=== PATIENT | female | born 1945 | race Caucasian/White ===

== ENCOUNTER 2017-05-01 08:16 | Inpatient (IN) ==
[2017-05-01] MEDS ORDERED: DILTIAZEM 50 MG/10 ML VIAL IV STA (08:44)
[2017-05-01 08:57] LABS: Basophils # 0.1 10*3/uL (0.0-0.2); Basophils % 0.9 % (0.0-0.8); Eosinophils # 0.1 10*3/uL (0.0-0.87); Eosinophils % 2.3 % (0.00-10.9); Hematocrit 41.2 VOL% (35.7-47.0); Hemoglobin 14.2 GM/DL (12.0-16.0); Immature Granulocytes % 0.2 %; Immature Granulocytes Absolute 0.01 #; Lymphocytes # 1.8 10*3/uL (1.4-4.0); Lymphocytes % 31.9 % (21.3-54.2); Mean Corpuscular HGB Conc 34.5 GM/DL (32-36); Mean Corpuscular Hemoglobin 30 PG (27-34); Mean Corpuscular Volume 86.9 FL (87-102); Mean Platelet Volume 9.1 FL (9.6-12.0); Monocytes # 0.6 10*3/uL (0.11-0.8); Monocytes % 10.1 % (1.7-12.7); Neutrophils # 3.1 10*3/uL (1.4-7.4); Neutrophils % 54.6 % (38.7-73.9); Platelet Count 289 T/CUMM (130-400); Red Blood Count 4.74 MC/CUMM (3.8-5.5); Red Cell Distribution Width 13.4 % (9.3-17.3); White Blood Count 5.6 T/CUMM (4-12)
[2017-05-01 09:05] LABS: PT Patient Result 20.2 SECS; Partial Thromboplastin Time 34.7 SECS (0-40)
[2017-05-01] MEDS ORDERED: DILTIAZEM 100 MG VIAL.ADD IV ONE (09:09)
[2017-05-01] MEDS ORDERED: DILTIAZEM 50 MG/10 ML VIAL IV ONE (09:09)
[2017-05-01] MEDS ORDERED: SODIUM CHLORIDE 0.9% 100 ML IV ONE (09:10)
[2017-05-01] MEDS: DILTIAZEM INJ 100 MG in SODIUM CHLORIDE 0.9% 100 ML IV SCH ×2 (09:17→16:30)
[2017-05-01 09:41] LABS: Free T4 (Free Thyroxine) 1.26 NG/DL (0.76-1.46); Magnesium 2.1 MG/DL (1.8-2.4)
[2017-05-01 09:48] LABS: Alanine Aminotransferase 32 U/L (13-56); Albumin 4.1 G/DL (3.4-5.0); Alkaline Phosphatase 83 U/L (45-117); Aspartate Amino Transferase 23 U/L (0-37); Blood Urea Nitrogen 13 MG/DL (7-18); Calcium 9.1 MG/DL (8.5-10.1); Glucose 100 MG/DL (74-106); Osmolality,Calculated 269.1 MOS/KG (273-304); Potassium 3.7 MMOL/L (3.5-5.1); Sodium 135 MMOL/L (136-145); Total Protein 7.5 G/DL (6.4-8.3); Troponin I Only < 0.015 NG/ML (0.00-0.045)
[2017-05-01] MEDS ORDERED: MAGNESIUM SULF RIDER 2 GM in PREMIX 1 EACH IV PRN (11:00)
[2017-05-01] MEDS ORDERED: MAGNESIUM SULF RIDER 4 GM in PREMIX 1 EACH IV PRN (11:00)
[2017-05-01] MEDS ORDERED: ZALEPLON 5 MG CAPSULE PO PRN (11:15)
[2017-05-01] MEDS ORDERED: ACETAMINOPHEN 325 MG TABLET PO PRN (11:15)
[2017-05-01] MEDS ORDERED: ONDANSETRON 4 MG/2 ML VIAL IV PRN (11:15)
[2017-05-01] MEDS ORDERED: LACTULOSE 20 GM/30 ML UDCUP PO PRN (11:15)
[2017-05-01] MEDS ORDERED: diphenhydrAMINE CAP 25 MG CAPSULE PO PRN ×2 (11:15→16:40)
[2017-05-01] MEDS ORDERED: POTASSIUM CHLORIDE 20 MEQ TABLET PO PRN (11:15)
[2017-05-01] MEDS ORDERED: DOCUSATE SODIUM 100 MG CAPSULE PO PRN (11:15)
[2017-05-01] MEDS ORDERED: MAGNESIUM HYDROXIDE SUSP 30 ML UDCUP PO PRN (14:00)
[2017-05-01] MEDS: CLORAZEPATE 3.75 MG TABLET PO SCH (14:53)
[2017-05-01] MEDS: WARFARIN 7.5 MG TABLET PO SCH (18:31)
[2017-05-01] MEDS: SOTALOL 80 MG TABLET PO SCH (20:32)
[2017-05-02 05:23] LABS: Basophils % 0.6 % (0.0-0.8); Eosinophils # 0.2 10*3/uL (0.0-0.87); Eosinophils % 3.3 % (0.00-10.9); Hematocrit 39.4 VOL% (35.7-47.0); Hemoglobin 13.3 GM/DL (12.0-16.0); Immature Granulocytes % 0.2 %; Immature Granulocytes Absolute 0.01 #; Lymphocytes # 2.5 10*3/uL (1.4-4.0); Lymphocytes % 38.6 % (21.3-54.2); Mean Corpuscular HGB Conc 33.8 GM/DL (32-36); Mean Corpuscular Hemoglobin 29 PG (27-34); Mean Corpuscular Volume 87.2 FL (87-102); Mean Platelet Volume 9.4 FL (9.6-12.0); Monocytes # 0.7 10*3/uL (0.11-0.8); Monocytes % 10.6 % (1.7-12.7); Neutrophils % 46.7 % (38.7-73.9); Platelet Count 285 T/CUMM (130-400); Red Blood Count 4.52 MC/CUMM (3.8-5.5); Red Cell Distribution Width 13.5 % (9.3-17.3); White Blood Count 6.4 T/CUMM (4-12)
[2017-05-02 05:45] LABS: Calcium 8.3 MG/DL (8.5-10.1); Magnesium 2.1 MG/DL (1.8-2.4); Osmolality,Calculated 274.8 MOS/KG (273-304)
[2017-05-02] MEDS: LEVOTHYROXINE 88 MCG TABLET PO SCH (06:10)
[2017-05-02] MEDS: LOSARTAN 50 MG TABLET PO SCH (08:50)
[2017-05-02] MEDS: ASPIRIN 325 MG TABLET PO SCH (08:51)
[2017-05-02] MEDS: SOTALOL 80 MG TABLET PO SCH ×2 (08:51→21:49)
[2017-05-02] MEDS: CLORAZEPATE 3.75 MG TABLET PO SCH (08:51)
[2017-05-02] MEDS: PANTOPRAZOLE 40 MG TABLET PO SCH (08:51)
[2017-05-02] MEDS: hydroCHLOROthiazide 12.5 MG CAPSULE PO SCH (08:51)
[2017-05-02] MEDS: WARFARIN 7.5 MG TABLET PO SCH (18:02)
[2017-05-03] MEDS: SOTALOL 80 MG TABLET PO SCH ×2 (04:13→21:28)
[2017-05-03 04:35] LABS: Basophils # 0.1 10*3/uL (0.0-0.2); Basophils % 0.8 % (0.0-0.8); Eosinophils # 0.2 10*3/uL (0.0-0.87); Eosinophils % 3.9 % (0.00-10.9); Hematocrit 37.1 VOL% (35.7-47.0); Hemoglobin 12.5 GM/DL (12.0-16.0); Immature Granulocytes % 0.3 %; Immature Granulocytes Absolute 0.02 #; Lymphocytes # 2.5 10*3/uL (1.4-4.0); Lymphocytes % 40.8 % (21.3-54.2); Mean Corpuscular HGB Conc 33.7 GM/DL (32-36); Mean Corpuscular Hemoglobin 29 PG (27-34); Mean Corpuscular Volume 86.7 FL (87-102); Mean Platelet Volume 9.5 FL (9.6-12.0); Monocytes # 0.6 10*3/uL (0.11-0.8); Monocytes % 9.1 % (1.7-12.7); Neutrophils # 2.8 10*3/uL (1.4-7.4); Neutrophils % 45.1 % (38.7-73.9); Platelet Count 265 T/CUMM (130-400); Red Blood Count 4.28 MC/CUMM (3.8-5.5); Red Cell Distribution Width 13.4 % (9.3-17.3); White Blood Count 6.2 T/CUMM (4-12)
[2017-05-03 05:21] LABS: Calcium 8.3 MG/DL (8.5-10.1); Osmolality,Calculated 271.1 MOS/KG (273-304); Potassium 3.9 MMOL/L (3.5-5.1)
[2017-05-03] MEDS: LEVOTHYROXINE 88 MCG TABLET PO SCH (07:22)
[2017-05-03] MEDS ORDERED: SOTALOL 80 MG TABLET PO SCH ×2 (09:00→09:18)
[2017-05-03] MEDS ORDERED: LEVOTHYROXINE 125 MCG TABLET PO SCH (09:32)
[2017-05-03 10:09] LABS: INR 2.6
[2017-05-03] MEDS: hydroCHLOROthiazide 12.5 MG CAPSULE PO SCH (10:20)
[2017-05-03] MEDS: CLORAZEPATE 3.75 MG TABLET PO SCH (10:20)
[2017-05-03] MEDS: ASPIRIN 325 MG TABLET PO SCH (10:20)
[2017-05-03 10:21] LABS: PT Patient Result 26.1 SECS
[2017-05-03] MEDS: LOSARTAN 50 MG TABLET PO SCH (10:21)
[2017-05-03] MEDS: PANTOPRAZOLE 40 MG TABLET PO SCH (10:21)
[2017-05-03] MEDS: WARFARIN 7.5 MG TABLET PO SCH (17:20)
[2017-05-04 05:17] LABS: Calcium 8.4 MG/DL (8.5-10.1); Magnesium 1.9 MG/DL (1.8-2.4); Potassium 3.6 MMOL/L (3.5-5.1)
[2017-05-04 06:00] LABS: Basophils % 0.5 % (0.0-0.8); Eosinophils # 0.2 10*3/uL (0.0-0.87); Eosinophils % 3.2 % (0.00-10.9); Hematocrit 36.4 VOL% (35.7-47.0); Hemoglobin 12.5 GM/DL (12.0-16.0); Immature Granulocytes % 0.2 %; Immature Granulocytes Absolute 0.01 #; Lymphocytes # 2.1 10*3/uL (1.4-4.0); Lymphocytes % 38.1 % (21.3-54.2); Mean Corpuscular HGB Conc 34.3 GM/DL (32-36); Mean Corpuscular Hemoglobin 29 PG (27-34); Mean Corpuscular Volume 85.6 FL (87-102); Mean Platelet Volume 9.9 FL (9.6-12.0); Monocytes # 0.6 10*3/uL (0.11-0.8); Monocytes % 10.5 % (1.7-12.7); Neutrophils # 2.6 10*3/uL (1.4-7.4); Neutrophils % 47.5 % (38.7-73.9); Platelet Count 262 T/CUMM (130-400); Red Blood Count 4.25 MC/CUMM (3.8-5.5); Red Cell Distribution Width 13.2 % (9.3-17.3); White Blood Count 5.5 T/CUMM (4-12)
[2017-05-04] MEDS: hydroCHLOROthiazide 12.5 MG CAPSULE PO SCH (08:25)
[2017-05-04] MEDS: CLORAZEPATE 3.75 MG TABLET PO SCH (08:25)
[2017-05-04] MEDS: PANTOPRAZOLE 40 MG TABLET PO SCH (08:25)
[2017-05-04] MEDS: ASPIRIN 325 MG TABLET PO SCH (08:25)
[2017-05-04] MEDS: LOSARTAN 50 MG TABLET PO SCH (08:29)
[2017-05-04 08:56] VITALS: BP 199/88
[2017-05-04] MEDS ORDERED: amLODIPine 5 MG TABLET PO SCH (09:30)
[2017-05-04] MEDS ORDERED: POTASSIUM CHLORIDE 20 MEQ TABLET PO SCH (09:30)
== END 2017-05-04 10:15 | disposition home or self-care (01) | DRG 310 ==
LOC: N.ED 08:16 → N.EDINP 09:29 → N.TELEN 10:38
PROVIDERS: ADMIT Internal Medicine Interventional Cardiology; ATTEND Internal Medicine Interventional Cardiology

== ENCOUNTER 2019-01-27 09:06 | Inpatient (IN) ==
[2019-01-27] MEDS ORDERED: BISACODYL 5 MG TABLET PO PRN (09:14)
[2019-01-27] MEDS ORDERED: guaiFENesin/DM ER 600-30 MG TABLET PO PRN (09:14)
[2019-01-27] MEDS ORDERED: MAGNESIUM SULF RIDER 4 GM in PREMIX 1 EACH IV PRN (09:14)
[2019-01-27] MEDS ORDERED: MORPHINE 4 MG/1 ML VIAL IV PRN (09:14)
[2019-01-27] MEDS ORDERED: diphenhydrAMINE CAP 25 MG CAPSULE PO PRN (09:14)
[2019-01-27] MEDS ORDERED: LACTULOSE 20 GM/30 ML UDCUP PO PRN (09:14)
[2019-01-27] MEDS ORDERED: ACETAMINOPHEN 325 MG TABLET PO PRN (09:14)
[2019-01-27] MEDS ORDERED: ONDANSETRON 4 MG/2 ML VIAL IV PRN (09:14)
[2019-01-27] MEDS ORDERED: DILTIAZEM 50 MG/10 ML VIAL IV ONE (09:18)
[2019-01-27] MEDS ORDERED: SOTALOL 80 MG TABLET PO ONE ×2 (09:19→21:00)
[2019-01-27] MEDS ORDERED: dilTIAZem Drip 125 MG/125 ML PREMIX IV SCH (09:30)
[2019-01-27] MEDS ORDERED: SOTALOL 80 MG TABLET PO SCH (09:30)
[2019-01-27 12:38] LABS: Basophils % 0.7 % (0.0-0.8); Eosinophils # 0.2 10*3/uL (0.0-0.87); Eosinophils % 2.6 % (0.00-10.9); Hematocrit 39.6 VOL% (35.7-47.0); Hemoglobin 13.1 GM/DL (12.0-16.0); Immature Granulocytes % 0.2 %; Immature Granulocytes Absolute 0.01 #; Lymphocytes # 2.3 10*3/uL (1.4-4.0); Lymphocytes % 38.4 % (21.3-54.2); Mean Corpuscular HGB Conc 33.1 GM/DL (32-36); Mean Corpuscular Volume 89.8 FL (87-102); Mean Platelet Volume 9.4 FL (9.6-12.0); Monocytes % 9.8 % (1.7-12.7); Neutrophils % 48.3 % (38.7-73.9); Platelet Count 272 T/CUMM (130-400); Red Blood Count 4.41 MC/CUMM (3.8-5.5); Red Cell Distribution Width 13.7 % (9.3-17.3)
[2019-01-27 12:53] LABS: Albumin 3.7 G/DL (3.4-5.0); Bilirubin,Total 0.4 MG/DL (0.2-1.0); Osmolality,Calculated 272.8 MOS/KG (273-304); Total Protein 6.7 G/DL (6.4-8.3)
[2019-01-27 13:12] LABS: Troponin I < 0.015 NG/ML (0.00-0.045)
[2019-01-27 15:03] LABS: Apearance,Urine CLEAR (Clear); Bilirubin,Urine Negative (Negative); Blood, Urine Small mg/dL (Negative); Glucose,Urine (UA) Negative (Negative); Ketones,Urine Negative (Negative); Nitrite,Urine Negative (Negative); Protein,Urine Negative; RBC,Urine 1 /HPF (0-4); Urine Color Straw (Yellow); Urine Specific Gravity 1.006 (1.001-1.035); Urine Urobilinogen < 2.0 EU/DL (0.2-1.0); WBC,Urine 1 /HPF (0-6)
[2019-01-27 16:14] LABS: Troponin I < 0.015 NG/ML (0.00-0.045)
[2019-01-27] MEDS: AMIODARONE 200 MG TABLET PO SCH (20:29)
[2019-01-27] MEDS: CLORAZEPATE 3.75 MG TABLET PO SCH (20:29)
[2019-01-27] MEDS: SPIRONOLACTONE 25 MG TABLET PO SCH (20:33)
[2019-01-28 04:46] LABS: Basophils % 0.4 % (0.0-0.8); Eosinophils # 0.3 10*3/uL (0.0-0.87); Eosinophils % 3.6 % (0.00-10.9); Hematocrit 39.6 VOL% (35.7-47.0); Hemoglobin 13.1 GM/DL (12.0-16.0); Immature Granulocytes % 0.6 %; Immature Granulocytes Absolute 0.04 #; Lymphocytes % 42.7 % (21.3-54.2); Mean Corpuscular HGB Conc 33.1 GM/DL (32-36); Mean Corpuscular Volume 88.2 FL (87-102); Mean Platelet Volume 9.5 FL (9.6-12.0); Monocytes % 9.3 % (1.7-12.7); Neutrophils % 43.4 % (38.7-73.9); Platelet Count 254 T/CUMM (130-400); Red Blood Count 4.49 MC/CUMM (3.8-5.5); Red Cell Distribution Width 13.6 % (9.3-17.3)
[2019-01-28 04:51] LABS: INR 3.1
[2019-01-28 05:18] LABS: Calcium 9.1 MG/DL (8.5-10.1); Osmolality,Calculated 270.1 MOS/KG (273-304); Risk Ratio 3.69; Thyroid Stimulating Hormone 1.17 uIU/ml (0.358-3.74); VLDL CHOLESTEROL 14.8 MG/DL
[2019-01-28] MEDS: LEVOTHYROXINE 125 MCG TABLET PO SCH (06:19)
[2019-01-28] MEDS ORDERED: SODIUM CHLORIDE 0.9% 1,000 ML IV SCH (08:30)
[2019-01-28] MEDS: ASPIRIN EC 81 MG TABLET PO SCH (10:53)
[2019-01-28] MEDS: AMIODARONE 200 MG TABLET PO SCH ×2 (10:54→21:10)
[2019-01-28] MEDS: PANTOPRAZOLE 40 MG TABLET PO SCH (10:54)
[2019-01-28] MEDS: SPIRONOLACTONE 25 MG TABLET PO SCH ×2 (10:54→21:10)
[2019-01-28] MEDS: CLORAZEPATE 3.75 MG TABLET PO SCH ×2 (10:55→21:10)
[2019-01-28] MEDS: POLYETHYLENE GLYCOL POWDER 17 GM PACK PO SCH (10:55)
[2019-01-28] MEDS ORDERED: WARFARIN 5 MG TABLET PO SCH (18:00)
[2019-01-29 04:38] LABS: INR 2.2
[2019-01-29 04:41] LABS: Calcium 8.7 MG/DL (8.5-10.1)
[2019-01-29 04:41] LABS: Basophils % 0.6 % (0.0-0.8); Eosinophils # 0.2 10*3/uL (0.0-0.87); Eosinophils % 3.1 % (0.00-10.9); Hematocrit 36.6 VOL% (35.7-47.0); Hemoglobin 12.3 GM/DL (12.0-16.0); Immature Granulocytes % 0.3 %; Immature Granulocytes Absolute 0.02 #; Lymphocytes # 2.4 10*3/uL (1.4-4.0); Lymphocytes % 35.6 % (21.3-54.2); Mean Corpuscular HGB Conc 33.6 GM/DL (32-36); Mean Corpuscular Volume 88.6 FL (87-102); Mean Platelet Volume 9.9 FL (9.6-12.0); Monocytes % 10.3 % (1.7-12.7); Neutrophils % 50.1 % (38.7-73.9); Platelet Count 255 T/CUMM (130-400); Red Blood Count 4.13 MC/CUMM (3.8-5.5); Red Cell Distribution Width 13.5 % (9.3-17.3); White Blood Count 6.7 T/CUMM (4-12)
[2019-01-29 05:00] LABS: Free T4 (Free Thyroxine) 1.23 NG/DL (0.76-1.46)
[2019-01-29 05:26] LABS: PT Patient Result 23.4 SECS (9.6-12.2)
[2019-01-29] MEDS: LEVOTHYROXINE 125 MCG TABLET PO SCH (06:17)
[2019-01-29] MEDS ORDERED: REGADENOSON 0.4 MG/5 ML SYRINGE IV ONE (09:03)
[2019-01-29] MEDS: PANTOPRAZOLE 40 MG TABLET PO SCH (11:24)
[2019-01-29] MEDS: SPIRONOLACTONE 25 MG TABLET PO SCH ×2 (11:24→21:57)
[2019-01-29] MEDS: AMIODARONE 200 MG TABLET PO SCH ×2 (11:24→21:56)
[2019-01-29] MEDS: ASPIRIN EC 81 MG TABLET PO SCH (11:24)
[2019-01-29] MEDS: POLYETHYLENE GLYCOL POWDER 17 GM PACK PO SCH (11:24)
[2019-01-29] MEDS: CLORAZEPATE 3.75 MG TABLET PO SCH ×2 (11:25→21:58)
[2019-01-29 14:59] LABS: Apearance,Urine CLEAR (Clear); Bilirubin,Urine Negative (Negative); Blood, Urine Small mg/dL (Negative); Glucose,Urine (UA) Negative (Negative); Ketones,Urine 20 mg/dL (Negative); Mucus,Urine Occasional /LPF (Occasional); Nitrite,Urine Negative (Negative); Protein,Urine Negative; RBC,Urine 3 /HPF (0-4); Urine Color Yellow (Yellow); Urine Urobilinogen < 2.0 EU/DL (0.2-1.0); WBC,Urine 1 /HPF (0-6)
[2019-01-29] MEDS: WARFARIN 7.5 MG TABLET PO SCH (18:14)
[2019-01-29] MEDS: ZALEPLON 5 MG CAPSULE PO PRN (21:56)
[2019-01-30 04:57] LABS: Basophils % 0.4 % (0.0-0.8); Eosinophils # 0.2 10*3/uL (0.0-0.87); Eosinophils % 2.8 % (0.00-10.9); Hematocrit 39.4 VOL% (35.7-47.0); Hemoglobin 13.1 GM/DL (12.0-16.0); Immature Granulocytes % 0.3 %; Immature Granulocytes Absolute 0.02 #; Lymphocytes # 2.7 10*3/uL (1.4-4.0); Lymphocytes % 37.5 % (21.3-54.2); Mean Corpuscular HGB Conc 33.2 GM/DL (32-36); Mean Corpuscular Volume 88.1 FL (87-102); Monocytes % 9.4 % (1.7-12.7); Neutrophils % 49.6 % (38.7-73.9); Platelet Count 265 T/CUMM (130-400); Red Blood Count 4.47 MC/CUMM (3.8-5.5); Red Cell Distribution Width 13.6 % (9.3-17.3); White Blood Count 7.2 T/CUMM (4-12)
[2019-01-30 05:11] LABS: INR 2.4
[2019-01-30 05:44] LABS: PT Patient Result 26.4 SECS (9.6-12.2)
[2019-01-30 06:09] LABS: Calcium 9.1 MG/DL (8.5-10.1); Osmolality,Calculated 275.7 MOS/KG (273-304)
[2019-01-30] MEDS: LEVOTHYROXINE 125 MCG TABLET PO SCH (09:18)
[2019-01-30] MEDS: CLORAZEPATE 3.75 MG TABLET PO SCH ×2 (09:18→20:59)
[2019-01-30] MEDS: AMIODARONE 200 MG TABLET PO SCH ×2 (09:18→20:57)
[2019-01-30] MEDS: PANTOPRAZOLE 40 MG TABLET PO SCH (09:18)
[2019-01-30] MEDS: SPIRONOLACTONE 25 MG TABLET PO SCH ×2 (09:18→20:57)
[2019-01-30] MEDS: POLYETHYLENE GLYCOL POWDER 17 GM PACK PO SCH (09:19)
[2019-01-30] MEDS: ASPIRIN EC 81 MG TABLET PO SCH (09:19)
[2019-01-30] MEDS: WARFARIN 7.5 MG TABLET PO SCH (17:59)
[2019-01-30] MEDS: ZALEPLON 5 MG CAPSULE PO PRN (20:58)
[2019-01-31 05:24] LABS: Basophils % 0.6 % (0.0-0.8); Eosinophils # 0.2 10*3/uL (0.0-0.87); Eosinophils % 3.1 % (0.00-10.9); Hematocrit 38.7 VOL% (35.7-47.0); Hemoglobin 12.7 GM/DL (12.0-16.0); Immature Granulocytes % 0.3 %; Immature Granulocytes Absolute 0.02 #; Lymphocytes # 2.8 10*3/uL (1.4-4.0); Lymphocytes % 41.4 % (21.3-54.2); Mean Corpuscular HGB Conc 32.8 GM/DL (32-36); Mean Corpuscular Volume 88.8 FL (87-102); Mean Platelet Volume 9.9 FL (9.6-12.0); Monocytes % 9.8 % (1.7-12.7); Neutrophils % 44.8 % (38.7-73.9); Platelet Count 254 T/CUMM (130-400); Red Blood Count 4.36 MC/CUMM (3.8-5.5); Red Cell Distribution Width 13.5 % (9.3-17.3); White Blood Count 6.8 T/CUMM (4-12)
[2019-01-31 05:26] LABS: Calcium 8.6 MG/DL (8.5-10.1); Osmolality,Calculated 275.7 MOS/KG (273-304)
[2019-01-31] MEDS: LEVOTHYROXINE 125 MCG TABLET PO SCH (07:51)
[2019-01-31] MEDS: POLYETHYLENE GLYCOL POWDER 17 GM PACK PO SCH (09:17)
[2019-01-31] MEDS: AMIODARONE 200 MG TABLET PO SCH ×2 (09:18→21:18)
[2019-01-31] MEDS: CLORAZEPATE 3.75 MG TABLET PO SCH ×2 (09:18→21:18)
[2019-01-31] MEDS: ASPIRIN EC 81 MG TABLET PO SCH (09:18)
[2019-01-31] MEDS: PANTOPRAZOLE 40 MG TABLET PO SCH (09:18)
[2019-01-31] MEDS: SPIRONOLACTONE 25 MG TABLET PO SCH ×2 (09:18→21:19)
[2019-01-31] MEDS: WARFARIN 7.5 MG TABLET PO SCH (18:21)
[2019-02-01 04:48] LABS: Basophils % 0.6 % (0.0-0.8); Eosinophils # 0.2 10*3/uL (0.0-0.87); Eosinophils % 3.1 % (0.00-10.9); Hematocrit 35.4 VOL% (35.7-47.0); Hemoglobin 11.7 GM/DL (12.0-16.0); Immature Granulocytes % 0.4 %; Immature Granulocytes Absolute 0.03 #; Lymphocytes # 2.1 10*3/uL (1.4-4.0); Lymphocytes % 29.5 % (21.3-54.2); Mean Corpuscular HGB Conc 33.1 GM/DL (32-36); Mean Corpuscular Volume 89.8 FL (87-102); Mean Platelet Volume 9.7 FL (9.6-12.0); Monocytes % 10.3 % (1.7-12.7); Neutrophils % 56.1 % (38.7-73.9); Platelet Count 227 T/CUMM (130-400); Red Blood Count 3.94 MC/CUMM (3.8-5.5); Red Cell Distribution Width 13.7 % (9.3-17.3); White Blood Count 7.2 T/CUMM (4-12)
[2019-02-01 04:53] LABS: INR 3.3; PT Patient Result 35.5 SECS (9.6-12.2)
[2019-02-01 05:19] LABS: Calcium 8.5 MG/DL (8.5-10.1); Osmolality,Calculated 270.1 MOS/KG (273-304)
[2019-02-01] MEDS: MAGNESIUM SULF RIDER 2 GM in PREMIX 1 EACH IV PRN ×2 (05:49→17:47)
[2019-02-01] MEDS: LEVOTHYROXINE 125 MCG TABLET PO SCH (07:10)
[2019-02-01] MEDS ORDERED: MAGNESIUM SULF RIDER 2 GM in PREMIX 1 EACH IV ONE (07:20)
[2019-02-01] MEDS: AMIODARONE 200 MG TABLET PO SCH ×2 (08:47→21:21)
[2019-02-01] MEDS: PANTOPRAZOLE 40 MG TABLET PO SCH ×2 (08:47→17:07)
[2019-02-01] MEDS: CLORAZEPATE 3.75 MG TABLET PO SCH ×2 (08:47→21:21)
[2019-02-01] MEDS: SPIRONOLACTONE 25 MG TABLET PO SCH ×2 (08:47→21:21)
[2019-02-01] MEDS: POLYETHYLENE GLYCOL POWDER 17 GM PACK PO SCH (08:47)
[2019-02-01] MEDS: ASPIRIN EC 81 MG TABLET PO SCH (08:47)
[2019-02-01] MEDS ORDERED: HEPARIN/NACL 0.9% 2 UNITS/ML 1,000 ML IV ONE ×2 (13:07)
[2019-02-01] MEDS ORDERED: LIDOCAINE 1% 20 ML VIAL ONE (13:07)
[2019-02-01] MEDS ORDERED: PHYTONADIONE 10 MG/1 ML AMP ONE (14:57)
[2019-02-01] MEDS ORDERED: SODIUM CHLORIDE 0.9% 1,000 ML IV PRN ×4 (14:58→21:34)
[2019-02-01] MEDS ORDERED: HEPARIN/NACL 0.9% 2 UNITS/ML 500 ML IV ONE ×2 (15:05→15:13)
[2019-02-01] MEDS ORDERED: PHENYLEPHRINE DRIP 40 MG/250 ML PREMIX IV ONE (16:24)
[2019-02-01] MEDS ORDERED: PHENYLEPHRINE DRIP 40 MG/250 ML PREMIX IV SCH (16:30)
[2019-02-01 17:00] LABS: ABG Base Excess -4.7 MMOL/L (-2.5-2.5); ABG HCO3 20.5 MMOL/L (20-26); ABG Oxygen Saturation 99.9 % (95-100); ABG PH 7.374 (7.35-7.45); ABG TCO2 18.3 MMOL/L (23-27)
[2019-02-01 17:01] LABS: Basophils % 0.4 % (0.0-0.8); Eosinophils # 0.2 10*3/uL (0.0-0.87); Hematocrit 26.2 VOL% (35.7-47.0); Immature Granulocytes % 0.6 %; Immature Granulocytes Absolute 0.07 #; Lymphocytes # 4.2 10*3/uL (1.4-4.0); Lymphocytes % 37.3 % (21.3-54.2); Mean Corpuscular HGB Conc 33.2 GM/DL (32-36); Mean Corpuscular Volume 90.3 FL (87-102); Mean Platelet Volume 9.4 FL (9.6-12.0); Monocytes % 4.7 % (1.7-12.7); Platelet Count 203 T/CUMM (130-400); Red Cell Distribution Width 13.9 % (9.3-17.3)
[2019-02-01] MEDS ORDERED: SEVOFLURANE 1 UNIT/15 MINUTE INH ONE (17:01)
[2019-02-01] MEDS ORDERED: PROPOFOL 200 MG/20 ML VIAL IV ONE (17:01)
[2019-02-01] MEDS ORDERED: ROCURONIUM 100 MG/10 ML VIAL IV ONE (17:02)
[2019-02-01] MEDS ORDERED: fentaNYL 100 MCG/2 ML VIAL ONE (17:02)
[2019-02-01] MEDS ORDERED: ONDANSETRON 4 MG/2 ML VIAL ONE (17:02)
[2019-02-01] MEDS ORDERED: MIDAZOLAM 2 MG/2 ML VIAL ONE (17:02)
[2019-02-01] MEDS ORDERED: PHENYLEPHRINE DRIP 20 MG/250 ML PREMIX IV ONE (17:04)
[2019-02-01] MEDS ORDERED: DEXAMETHASONE 4 MG/1 ML VIAL ONE (17:04)
[2019-02-01] MEDS ORDERED: ePHEDrine 50 MG/ML AMP ONE (17:04)
[2019-02-01] MEDS ORDERED: LACTATED RINGERS 1,000 ML IV ONE ×2 (17:05→17:06)
[2019-02-01] MEDS ORDERED: SODIUM CHLORIDE 0.9% 1,000 ML IV ONE (17:05)
[2019-02-01] MEDS ORDERED: PHENYLEPHRINE 1 MG/10 ML SYRINGE IV ONE (17:05)
[2019-02-01] MEDS ORDERED: PROTAMINE SULFATE 50 MG/5 ML VIAL IV ONE (17:05)
[2019-02-01] MEDS: PROPOFOL 1,000 MG/100 ML BOTTLE IV SCH ×2 (17:07→23:26)
[2019-02-01] MEDS: SODIUM CHLORIDE 0.9% 1,000 ML IV SCH (17:08)
[2019-02-01 17:11] LABS: Hemoglobin 8.7 GM/DL (12.0-16.0); White Blood Count 11.4 T/CUMM (4-12)
[2019-02-01 17:17] LABS: Calcium 7.6 MG/DL (8.5-10.1); Osmolality,Calculated 281.7 MOS/KG (273-304)
[2019-02-01 17:32] LABS: INR 1.7; PT Patient Result 17.9 SECS (9.6-12.2)
[2019-02-01] MEDS: ceFAZolin 1,000 MG in SYRINGE 1 EACH IV SCH (17:47)
[2019-02-01] MEDS: POTASSIUM CHLORIDE RIDER 10 MEQ in PREMIX 1 EACH IV PRN ×4 (17:48→20:55)
[2019-02-01] MEDS ORDERED: CALCIUM GLUCONATE 1,000 MG in SODIUM CHLORIDE 0.9% 100 ML IV PRN (18:29)
[2019-02-02 00:47] LABS: Hematocrit 29.8 VOL% (35.7-47.0); Hemoglobin 10.1 GM/DL (12.0-16.0)
[2019-02-02] MEDS ORDERED: SODIUM CHLORIDE 0.9% 100 ML IV ONE (01:45)
[2019-02-02] MEDS: ceFAZolin 1,000 MG in SYRINGE 1 EACH IV SCH ×3 (01:51→16:30)
[2019-02-02] MEDS: SODIUM CHLORIDE 0.9% 1,000 ML IV SCH ×2 (02:40→13:05)
[2019-02-02] MEDS: PROPOFOL 1,000 MG/100 ML BOTTLE IV SCH ×2 (03:16→07:43)
[2019-02-02 03:59] LABS: Allen Test Positive; Pt O2 Delivery Device Ventilator
[2019-02-02 04:00] LABS: ABG Base Excess -0.7 MMOL/L (-2.5-2.5); ABG HCO3 23.9 MMOL/L (20-26); ABG Oxygen Saturation 99.7 % (95-100); ABG PCO2 32.7 MM HG (35-48); ABG TCO2 20.6 MMOL/L (23-27)
[2019-02-02 04:36] LABS: Basophils % 0.1 % (0.0-0.8); Eosinophils % 0.3 % (0.00-10.9); Hematocrit 28.6 VOL% (35.7-47.0); Hemoglobin 9.6 GM/DL (12.0-16.0); Immature Granulocytes % 0.5 %; Immature Granulocytes Absolute 0.04 #; Lymphocytes # 1.4 10*3/uL (1.4-4.0); Lymphocytes % 19.1 % (21.3-54.2); Mean Corpuscular HGB Conc 33.6 GM/DL (32-36); Mean Corpuscular Volume 88.5 FL (87-102); Mean Platelet Volume 10.2 FL (9.6-12.0); Monocytes % 8.4 % (1.7-12.7); Neutrophils % 71.6 % (38.7-73.9); Red Blood Count 3.23 MC/CUMM (3.8-5.5); Red Cell Distribution Width 14.4 % (9.3-17.3)
[2019-02-02 04:37] LABS: INR 1.1; PT Patient Result 11.9 SECS (9.6-12.2)
[2019-02-02 04:46] LABS: Platelet Count 135 T/CUMM (130-400); White Blood Count 7.5 T/CUMM (4-12)
[2019-02-02 04:47] LABS: Calcium 8.2 MG/DL (8.5-10.1); Osmolality,Calculated 279.3 MOS/KG (273-304)
[2019-02-02] MEDS: LEVOTHYROXINE 125 MCG TABLET PO SCH (06:24)
[2019-02-02] MEDS: SPIRONOLACTONE 25 MG TABLET PO SCH ×2 (08:29→20:36)
[2019-02-02] MEDS: CLORAZEPATE 3.75 MG TABLET PO SCH ×2 (08:29→20:36)
[2019-02-02] MEDS: AMIODARONE 200 MG TABLET PO SCH ×2 (08:30→20:36)
[2019-02-02] MEDS: POLYETHYLENE GLYCOL POWDER 17 GM PACK PO SCH (08:35)
[2019-02-02] MEDS: PANTOPRAZOLE 40 MG TABLET PO SCH (08:35)
[2019-02-02] MEDS: IBUPROFEN 400 MG TABLET PO PRN ×2 (13:57→20:36)
[2019-02-02] MEDS: COLCHICINE 0.6 MG CAPSULE PO SCH (13:57)
[2019-02-02] MEDS: MINERAL OIL/PETROLATUM OPH OINT 3.5 GM TUBE BOTH EYES SCH (20:37)
[2019-02-03] MEDS: ceFAZolin 1,000 MG in SYRINGE 1 EACH IV SCH ×2 (01:55→08:45)
[2019-02-03 04:26] LABS: Basophils % 0.1 % (0.0-0.8); Eosinophils % 0.5 % (0.00-10.9); Hematocrit 29.2 VOL% (35.7-47.0); Hemoglobin 9.8 GM/DL (12.0-16.0); Immature Granulocytes % 0.2 %; Immature Granulocytes Absolute 0.02 #; Lymphocytes # 1.3 10*3/uL (1.4-4.0); Lymphocytes % 15.3 % (21.3-54.2); Mean Corpuscular HGB Conc 33.6 GM/DL (32-36); Mean Corpuscular Volume 89.3 FL (87-102); Mean Platelet Volume 9.8 FL (9.6-12.0); Monocytes % 13.2 % (1.7-12.7); Neutrophils % 70.7 % (38.7-73.9); Platelet Count 116 T/CUMM (130-400); Red Blood Count 3.27 MC/CUMM (3.8-5.5); Red Cell Distribution Width 14.6 % (9.3-17.3); White Blood Count 8.5 T/CUMM (4-12)
[2019-02-03 04:38] LABS: INR 1.1; PT Patient Result 11.4 SECS (9.6-12.2)
[2019-02-03 04:44] LABS: Calcium 8.2 MG/DL (8.5-10.1); Osmolality,Calculated 274.5 MOS/KG (273-304)
[2019-02-03] MEDS: LEVOTHYROXINE 125 MCG TABLET PO SCH (06:24)
[2019-02-03] MEDS: CLORAZEPATE 3.75 MG TABLET PO SCH ×2 (08:43→21:58)
[2019-02-03] MEDS: COLCHICINE 0.6 MG CAPSULE PO SCH (08:43)
[2019-02-03] MEDS: AMIODARONE 200 MG TABLET PO SCH (08:44)
[2019-02-03] MEDS: PANTOPRAZOLE 40 MG TABLET PO SCH (08:45)
[2019-02-03] MEDS: SPIRONOLACTONE 25 MG TABLET PO SCH ×2 (08:45→21:58)
[2019-02-03] MEDS: POLYETHYLENE GLYCOL POWDER 17 GM PACK PO SCH (08:45)
[2019-02-03] MEDS: IBUPROFEN 400 MG TABLET PO PRN (15:50)
[2019-02-03] MEDS ORDERED: FUROSEMIDE 20 MG TABLET PO ONE (17:03)
[2019-02-03] MEDS: MINERAL OIL/PETROLATUM OPH OINT 3.5 GM TUBE BOTH EYES SCH (21:57)
[2019-02-03] MEDS: DILTIAZEM CD 120 MG CAPSULE PO SCH (21:58)
[2019-02-03] MEDS: CARVEDILOL 3.125 MG TABLET PO SCH (22:02)
[2019-02-04 05:03] LABS: Basophils % 0.4 % (0.0-0.8); Eosinophils # 0.2 10*3/uL (0.0-0.87); Eosinophils % 1.7 % (0.00-10.9); Hematocrit 31.5 VOL% (35.7-47.0); Hemoglobin 10.3 GM/DL (12.0-16.0); Immature Granulocytes % 0.4 %; Immature Granulocytes Absolute 0.04 #; Lymphocytes # 1.9 10*3/uL (1.4-4.0); Lymphocytes % 20.7 % (21.3-54.2); Mean Corpuscular HGB Conc 32.7 GM/DL (32-36); Mean Corpuscular Volume 90.3 FL (87-102); Mean Platelet Volume 9.7 FL (9.6-12.0); Monocytes % 7.5 % (1.7-12.7); Neutrophils % 69.3 % (38.7-73.9); Platelet Count 149 T/CUMM (130-400); Red Blood Count 3.49 MC/CUMM (3.8-5.5); Red Cell Distribution Width 14.3 % (9.3-17.3)
[2019-02-04 05:12] LABS: INR 0.9; PT Patient Result 10.2 SECS (9.6-12.2)
[2019-02-04 05:16] LABS: Calcium 8.2 MG/DL (8.5-10.1); Osmolality,Calculated 271.8 MOS/KG (273-304)
[2019-02-04] MEDS: LEVOTHYROXINE 125 MCG TABLET PO SCH (06:07)
[2019-02-04] MEDS: MAGNESIUM SULF RIDER 2 GM in PREMIX 1 EACH IV PRN (06:07)
[2019-02-04] MEDS: POTASSIUM CHLORIDE 20 MEQ TABLET PO PRN (06:07)
[2019-02-04] MEDS ORDERED: POTASSIUM CHLORIDE 20 MEQ TABLET PO ONE (07:43)
[2019-02-04] MEDS ORDERED: COLCHICINE 0.6 MG CAPSULE PO SCH (09:00)
[2019-02-04] MEDS ORDERED: FUROSEMIDE 40 MG TABLET PO SCH (09:00)
[2019-02-04] MEDS: POLYETHYLENE GLYCOL POWDER 17 GM PACK PO SCH (09:04)
[2019-02-04] MEDS: CARVEDILOL 3.125 MG TABLET PO SCH (09:05)
[2019-02-04] MEDS: AMIODARONE 200 MG TABLET PO SCH (09:06)
[2019-02-04] MEDS: SPIRONOLACTONE 25 MG TABLET PO SCH ×2 (09:06→21:13)
[2019-02-04] MEDS: COLCHICINE 0.6 MG CAPSULE PO SCH (09:06)
[2019-02-04] MEDS: PANTOPRAZOLE 40 MG TABLET PO SCH (09:51)
[2019-02-04] MEDS: MAGNESIUM OXIDE 400 MG TABLET PO SCH ×2 (10:43→21:14)
[2019-02-04] MEDS: DILTIAZEM CD 120 MG CAPSULE PO SCH (21:13)
[2019-02-04] MEDS: CARVEDILOL 12.5 MG TABLET PO SCH (21:13)
[2019-02-04] MEDS: MINERAL OIL/PETROLATUM OPH OINT 3.5 GM TUBE BOTH EYES SCH (21:14)
[2019-02-05 06:07] LABS: Basophils % 0.6 % (0.0-0.8); Eosinophils # 0.2 10*3/uL (0.0-0.87); Eosinophils % 3.7 % (0.00-10.9); Hematocrit 31.3 VOL% (35.7-47.0); Hemoglobin 10.2 GM/DL (12.0-16.0); Immature Granulocytes % 0.3 %; Immature Granulocytes Absolute 0.02 #; Lymphocytes # 1.7 10*3/uL (1.4-4.0); Lymphocytes % 25.6 % (21.3-54.2); Mean Corpuscular HGB Conc 32.6 GM/DL (32-36); Mean Corpuscular Volume 91.3 FL (87-102); Monocytes % 11.4 % (1.7-12.7); Neutrophils % 58.4 % (38.7-73.9); Platelet Count 180 T/CUMM (130-400); Red Blood Count 3.43 MC/CUMM (3.8-5.5); Red Cell Distribution Width 13.9 % (9.3-17.3); White Blood Count 6.5 T/CUMM (4-12)
[2019-02-05 06:12] LABS: INR 0.9; PT Patient Result 10.1 SECS (9.6-12.2)
[2019-02-05 06:29] LABS: Calcium 8.3 MG/DL (8.5-10.1); Osmolality,Calculated 271.8 MOS/KG (273-304)
[2019-02-05] MEDS: LEVOTHYROXINE 125 MCG TABLET PO SCH (06:42)
[2019-02-05] MEDS: COLCHICINE 0.6 MG CAPSULE PO SCH (09:54)
[2019-02-05] MEDS: MAGNESIUM OXIDE 400 MG TABLET PO SCH ×2 (09:54→20:38)
[2019-02-05] MEDS: SPIRONOLACTONE 25 MG TABLET PO SCH ×2 (09:55→20:38)
[2019-02-05] MEDS: FUROSEMIDE 20 MG TABLET PO SCH (09:55)
[2019-02-05] MEDS: POTASSIUM CHLORIDE 20 MEQ TABLET PO PRN (09:55)
[2019-02-05] MEDS: PANTOPRAZOLE 40 MG TABLET PO SCH (09:55)
[2019-02-05] MEDS: AMIODARONE 200 MG TABLET PO SCH (09:56)
[2019-02-05] MEDS: POLYETHYLENE GLYCOL POWDER 17 GM PACK PO SCH (09:56)
[2019-02-05] MEDS: CARVEDILOL 12.5 MG TABLET PO SCH ×2 (09:56→18:25)
[2019-02-05] MEDS: DILTIAZEM CD 120 MG CAPSULE PO SCH (20:39)
[2019-02-05] MEDS: MINERAL OIL/PETROLATUM OPH OINT 3.5 GM TUBE BOTH EYES SCH (20:40)
[2019-02-06 04:32] LABS: INR 0.9; PT Patient Result 10.2 SECS (9.6-12.2)
[2019-02-06 04:58] LABS: Calcium 8.5 MG/DL (8.5-10.1); Osmolality,Calculated 274.7 MOS/KG (273-304)
[2019-02-06 05:34] LABS: Anisocytosis 1+; Platelet Estimate Adequate
[2019-02-06 05:45] LABS: Basophils % 0.6 % (0.0-0.8); Eosinophils # 0.3 10*3/uL (0.0-0.87); Eosinophils % 4.9 % (0.00-10.9); Hemoglobin 10.4 GM/DL (12.0-16.0); Immature Granulocytes % 0.3 %; Immature Granulocytes Absolute 0.02 #; Lymphocytes # 1.9 10*3/uL (1.4-4.0); Lymphocytes % 27.8 % (21.3-54.2); Mean Corpuscular HGB Conc 32.5 GM/DL (32-36); Mean Corpuscular Volume 91.7 FL (87-102); Mean Platelet Volume 9.8 FL (9.6-12.0); Monocytes % 10.3 % (1.7-12.7); Neutrophils % 56.1 % (38.7-73.9); Platelet Count 222 T/CUMM (130-400); Red Blood Count 3.49 MC/CUMM (3.8-5.5); Red Cell Distribution Width 13.8 % (9.3-17.3); White Blood Count 6.9 T/CUMM (4-12)
[2019-02-06] MEDS: LEVOTHYROXINE 125 MCG TABLET PO SCH (06:30)
[2019-02-06] MEDS: POTASSIUM CHLORIDE 20 MEQ TABLET PO PRN (06:31)
[2019-02-06] MEDS: MAGNESIUM OXIDE 400 MG TABLET PO SCH ×2 (08:01→20:53)
[2019-02-06] MEDS: POLYETHYLENE GLYCOL POWDER 17 GM PACK PO SCH (08:01)
[2019-02-06] MEDS: PANTOPRAZOLE 40 MG TABLET PO SCH (08:01)
[2019-02-06] MEDS: FUROSEMIDE 20 MG TABLET PO SCH (08:01)
[2019-02-06] MEDS: AMIODARONE 200 MG TABLET PO SCH (08:01)
[2019-02-06] MEDS: SPIRONOLACTONE 25 MG TABLET PO SCH ×2 (08:01→20:52)
[2019-02-06] MEDS: COLCHICINE 0.6 MG CAPSULE PO SCH (08:01)
[2019-02-06] MEDS: CARVEDILOL 12.5 MG TABLET PO SCH ×2 (08:01→17:22)
[2019-02-06] MEDS: DILTIAZEM CD 120 MG CAPSULE PO SCH (20:53)
[2019-02-06] MEDS: MINERAL OIL/PETROLATUM OPH OINT 3.5 GM TUBE BOTH EYES SCH (20:53)
[2019-02-07 06:01] LABS: Basophils % 0.6 % (0.0-0.8); Eosinophils # 0.2 10*3/uL (0.0-0.87); Eosinophils % 4.4 % (0.00-10.9); Hematocrit 39.2 VOL% (35.7-47.0); Hemoglobin 12.7 GM/DL (12.0-16.0); Immature Granulocytes % 0.4 %; Immature Granulocytes Absolute 0.02 #; Lymphocytes # 1.3 10*3/uL (1.4-4.0); Lymphocytes % 24.6 % (21.3-54.2); Mean Corpuscular HGB Conc 32.4 GM/DL (32-36); Mean Platelet Volume 9.2 FL (9.6-12.0); Monocytes % 10.4 % (1.7-12.7); Neutrophils % 59.6 % (38.7-73.9); Platelet Count 182 T/CUMM (130-400); Red Blood Count 4.31 MC/CUMM (3.8-5.5); Red Cell Distribution Width 13.6 % (9.3-17.3); White Blood Count 5.2 T/CUMM (4-12)
[2019-02-07 06:08] LABS: INR 0.9; PT Patient Result 10.3 SECS (9.6-12.2)
[2019-02-07] MEDS: LEVOTHYROXINE 125 MCG TABLET PO SCH (06:18)
[2019-02-07 06:50] LABS: Calcium 8.7 MG/DL (8.5-10.1); Osmolality,Calculated 273.7 MOS/KG (273-304)
[2019-02-07] MEDS: COLCHICINE 0.6 MG CAPSULE PO SCH (09:00)
[2019-02-07] MEDS: MAGNESIUM OXIDE 400 MG TABLET PO SCH ×2 (09:00→21:10)
[2019-02-07] MEDS: AMIODARONE 200 MG TABLET PO SCH (09:00)
[2019-02-07] MEDS: FUROSEMIDE 20 MG TABLET PO SCH (09:01)
[2019-02-07] MEDS: CARVEDILOL 12.5 MG TABLET PO SCH ×2 (09:01→16:38)
[2019-02-07] MEDS: POLYETHYLENE GLYCOL POWDER 17 GM PACK PO SCH (09:01)
[2019-02-07] MEDS: PANTOPRAZOLE 40 MG TABLET PO SCH (09:01)
[2019-02-07] MEDS: SPIRONOLACTONE 25 MG TABLET PO SCH ×2 (09:01→21:10)
[2019-02-07] MEDS: MAGNESIUM SULF RIDER 2 GM in PREMIX 1 EACH IV PRN (09:10)
[2019-02-07] MEDS: MINERAL OIL/PETROLATUM OPH OINT 3.5 GM TUBE BOTH EYES SCH (21:10)
[2019-02-07] MEDS: DILTIAZEM CD 120 MG CAPSULE PO SCH (21:10)
[2019-02-08] MEDS ORDERED: ceFAZolin 1,000 MG in SYRINGE 1 EACH IV ONE (06:00)
[2019-02-08 06:27] LABS: Basophils % 0.4 % (0.0-0.8); Eosinophils # 0.3 10*3/uL (0.0-0.87); Eosinophils % 3.9 % (0.00-10.9); Immature Granulocytes % 0.6 %; Immature Granulocytes Absolute 0.04 #; Lymphocytes # 1.7 10*3/uL (1.4-4.0); Lymphocytes % 24.4 % (21.3-54.2); Mean Corpuscular HGB Conc 32.4 GM/DL (32-36); Mean Corpuscular Volume 90.4 FL (87-102); Mean Platelet Volume 9.3 FL (9.6-12.0); Monocytes % 11.3 % (1.7-12.7); Neutrophils % 59.4 % (38.7-73.9); Platelet Count 259 T/CUMM (130-400); Red Blood Count 3.76 MC/CUMM (3.8-5.5); Red Cell Distribution Width 13.5 % (9.3-17.3)
[2019-02-08] MEDS ORDERED: ceFAZolin 1,000 MG VIAL IRRIG ONE (06:30)
[2019-02-08] MEDS: LEVOTHYROXINE 125 MCG TABLET PO SCH (06:34)
[2019-02-08 06:37] LABS: PT Patient Result 10.5 SECS (9.6-12.2)
[2019-02-08 06:47] LABS: Calcium 9.2 MG/DL (8.5-10.1); Osmolality,Calculated 273.8 MOS/KG (273-304)
[2019-02-08] MEDS ORDERED: HEPARIN/NACL 0.9% 2 UNITS/ML 500 ML IV ONE ×2 (12:49→14:16)
[2019-02-08] MEDS ORDERED: LIDOCAINE 1% 20 ML VIAL ONE ×2 (12:49→14:16)
[2019-02-08] MEDS ORDERED: ceFAZolin 1,000 MG VIAL ONE (12:55)
[2019-02-08] MEDS ORDERED: LIDOCAINE 100 MG/5 ML SYRINGE ONE (13:14)
[2019-02-08] MEDS ORDERED: PROPOFOL 200 MG/20 ML VIAL IV ONE (13:14)
[2019-02-08] MEDS ORDERED: fentaNYL 100 MCG/2 ML VIAL ONE (13:15)
[2019-02-08] MEDS ORDERED: MIDAZOLAM 2 MG/2 ML VIAL ONE (13:15)
[2019-02-08] MEDS ORDERED: TISSUE ADHESIVE 1 EACH APPLICATOR TOP ONE (13:51)
[2019-02-08] MEDS ORDERED: HEPARIN/NACL 0.9% 2 UNITS/ML 1,000 ML IV ONE (14:24)
[2019-02-08] MEDS ORDERED: oxyCODONE/ACETAMINOPHEN 5-325 MG TABLET PO PRN (14:53)
[2019-02-08] MEDS: SPIRONOLACTONE 25 MG TABLET PO SCH ×2 (17:20→20:48)
[2019-02-08] MEDS: MAGNESIUM OXIDE 400 MG TABLET PO SCH ×2 (17:20→20:48)
[2019-02-08] MEDS: POLYETHYLENE GLYCOL POWDER 17 GM PACK PO SCH (17:30)
[2019-02-08] MEDS: AMIODARONE 200 MG TABLET PO SCH (17:31)
[2019-02-08] MEDS: FUROSEMIDE 20 MG TABLET PO SCH (17:31)
[2019-02-08] MEDS: PANTOPRAZOLE 40 MG TABLET PO SCH (17:33)
[2019-02-08] MEDS: CARVEDILOL 12.5 MG TABLET PO SCH (17:54)
[2019-02-08] MEDS: COLCHICINE 0.6 MG CAPSULE PO SCH (17:54)
[2019-02-08] MEDS ORDERED: WARFARIN 7.5 MG TABLET PO SCH (18:00)
[2019-02-08] MEDS: CARVEDILOL 25 MG TABLET PO SCH (18:01)
[2019-02-08] MEDS: MINERAL OIL/PETROLATUM OPH OINT 3.5 GM TUBE BOTH EYES SCH (20:48)
[2019-02-08] MEDS: ceFAZolin 1,000 MG in SYRINGE 1 EACH IV SCH (20:48)
[2019-02-09] MEDS: ceFAZolin 1,000 MG in SYRINGE 1 EACH IV SCH (04:41)
[2019-02-09 05:27] LABS: Basophils % 0.4 % (0.0-0.8); Eosinophils # 0.1 10*3/uL (0.0-0.87); Eosinophils % 1.3 % (0.00-10.9); Hematocrit 32.2 VOL% (35.7-47.0); Hemoglobin 10.6 GM/DL (12.0-16.0); Immature Granulocytes % 0.4 %; Immature Granulocytes Absolute 0.03 #; Lymphocytes # 1.6 10*3/uL (1.4-4.0); Lymphocytes % 21.7 % (21.3-54.2); Mean Corpuscular HGB Conc 32.9 GM/DL (32-36); Mean Corpuscular Volume 89.9 FL (87-102); Mean Platelet Volume 9.2 FL (9.6-12.0); Monocytes % 11.1 % (1.7-12.7); Neutrophils % 65.1 % (38.7-73.9); Platelet Count 251 T/CUMM (130-400); Red Blood Count 3.58 MC/CUMM (3.8-5.5); Red Cell Distribution Width 13.7 % (9.3-17.3); White Blood Count 7.5 T/CUMM (4-12)
[2019-02-09 05:40] LABS: PT Patient Result 11.3 SECS (9.6-12.2)
[2019-02-09 05:57] LABS: Calcium 8.4 MG/DL (8.5-10.1); Osmolality,Calculated 266.2 MOS/KG (273-304)
[2019-02-09] MEDS: LEVOTHYROXINE 125 MCG TABLET PO SCH (06:21)
[2019-02-09 09:03] VITALS: BP 148/73
[2019-02-09] MEDS: MAGNESIUM OXIDE 400 MG TABLET PO SCH (09:49)
[2019-02-09] MEDS: PANTOPRAZOLE 40 MG TABLET PO SCH (09:49)
[2019-02-09] MEDS: SPIRONOLACTONE 25 MG TABLET PO SCH (09:49)
[2019-02-09] MEDS: AMIODARONE 200 MG TABLET PO SCH (09:49)
[2019-02-09] MEDS: FUROSEMIDE 20 MG TABLET PO SCH (09:49)
[2019-02-09] MEDS: CARVEDILOL 25 MG TABLET PO SCH (09:50)
[2019-02-09] MEDS: POLYETHYLENE GLYCOL POWDER 17 GM PACK PO SCH (09:50)
== END 2019-02-09 11:11 | disposition home or self-care (01) | DRG 243 ==
LOC: N.TELES → OBSVTOIN 10:22 → N.ICU 02-01 15:16 → N.TELEN 02-03 12:50
PROVIDERS: ADMIT Internal Medicine Interventional Cardiology; ATTEND Internal Medicine Clinical Cardiac Electrophysiology

== ENCOUNTER 2019-07-22 08:45 | Observation (INO) ==
[2019-07-22] MEDS ORDERED: SODIUM CHLORIDE 0.9% 1,000 ML IV STA (09:09)
[2019-07-22] MEDS ORDERED: ONDANSETRON 4 MG/2 ML VIAL IV PRN (09:09)
[2019-07-22] MEDS ORDERED: HYDROmorphone 2 MG/1 ML VIAL IV STA (09:11)
[2019-07-22 09:20] LABS: Basophils # 0.1 10*3/uL (0.0-0.2); Basophils % 0.4 % (0.0-0.8); Eosinophils # 0.1 10*3/uL (0.0-0.87); Eosinophils % 0.9 % (0.00-10.9); Hematocrit 41.5 VOL% (35.7-47.0); Hemoglobin 13.8 GM/DL (12.0-16.0); Immature Granulocytes % 0.5 %; Immature Granulocytes Absolute 0.06 #; Lymphocytes # 1.2 10*3/uL (1.4-4.0); Lymphocytes % 10.6 % (21.3-54.2); Mean Corpuscular HGB Conc 33.3 GM/DL (32-36); Mean Corpuscular Volume 88.9 FL (87-102); Mean Platelet Volume 9.2 FL (9.6-12.0); Monocytes % 4.2 % (1.7-12.7); Neutrophils % 83.4 % (38.7-73.9); Platelet Count 287 T/CUMM (130-400); Red Blood Count 4.67 MC/CUMM (3.8-5.5); Red Cell Distribution Width 14.5 % (9.3-17.3); White Blood Count 11.7 T/CUMM (4-12)
[2019-07-22 09:27] LABS: Partial Thromboplastin Time 30.6 SECS (20.8-36.0)
[2019-07-22 09:31] LABS: Albumin 3.8 G/DL (3.4-5.0); Bilirubin,Total 0.7 MG/DL (0.2-1.0); Calcium 8.9 MG/DL (8.5-10.1); Osmolality,Calculated 262.8 MOS/KG (273-304); Total Protein 6.9 G/DL (6.4-8.3)
[2019-07-22 09:33] LABS: INR 1.9; PT Patient Result 20.9 SECS (9.6-12.2)
[2019-07-22] MEDS ORDERED: DICYCLOMINE 20 MG TABLET ONE (10:05)
[2019-07-22] MEDS ORDERED: DICYCLOMINE 20 MG TABLET PO STA (10:12)
[2019-07-22 11:25] LABS: Apearance,Urine Slightly Hazy (Clear); Bilirubin,Urine Negative (Negative); Blood, Urine Negative (Negative); Glucose,Urine (UA) Negative (Negative); Ketones,Urine 20 mg/dL (Negative); Mucus,Urine Occasional /LPF (Occasional); Nitrite,Urine Negative (Negative); Protein,Urine Negative; RBC,Urine 21 /HPF (0-4); Squamous Epithelial Cell,Urine Occasional /HPF (0-10); Urine Color Yellow (Yellow); Urine Specific Gravity > 1.060 (1.001-1.035); Urine Urobilinogen < 2.0 EU/DL (0.2-1.0)
[2019-07-22] MEDS ORDERED: DICYCLOMINE 20 MG/2 ML AMP IM ONE (11:54)
[2019-07-22] MEDS: DICYCLOMINE 20 MG TABLET PO PRN (14:22)
[2019-07-22] MEDS: PANTOPRAZOLE 40 MG VIAL IV SCH (14:23)
[2019-07-22] MEDS: SODIUM CHLORIDE 0.9% 1,000 ML IV SCH ×2 (14:26→21:39)
[2019-07-22] MEDS: ONDANSETRON 4 MG/2 ML VIAL IV PRN (20:10)
[2019-07-22] MEDS ORDERED: CLORAZEPATE 3.75 MG TABLET PO PRN (20:58)
[2019-07-22] MEDS: MAGNESIUM OXIDE 400 MG TABLET PO SCH (21:41)
[2019-07-22] MEDS: carvediloL 25 MG TABLET PO SCH (21:41)
[2019-07-22] MEDS: lisinopriL 5 MG TABLET PO SCH (21:41)
[2019-07-22] MEDS: WARFARIN 5 MG TABLET PO SCH (21:41)
[2019-07-23] MEDS: SODIUM CHLORIDE 0.9% 1,000 ML IV SCH ×2 (05:15→18:26)
[2019-07-23 05:55] LABS: Basophils % 0.1 % (0.0-0.8); Hematocrit 39.5 VOL% (35.7-47.0); Immature Granulocytes % 0.4 %; Immature Granulocytes Absolute 0.06 #; Lymphocytes # 1.2 10*3/uL (1.4-4.0); Lymphocytes % 7.9 % (21.3-54.2); Mean Corpuscular HGB Conc 32.9 GM/DL (32-36); Mean Corpuscular Volume 89.8 FL (87-102); Mean Platelet Volume 9.2 FL (9.6-12.0); Monocytes % 6.2 % (1.7-12.7); Neutrophils % 85.4 % (38.7-73.9); Platelet Count 258 T/CUMM (130-400); Red Cell Distribution Width 14.7 % (9.3-17.3); White Blood Count 15.7 T/CUMM (4-12)
[2019-07-23 06:25] LABS: Albumin 2.8 G/DL (3.4-5.0); Bilirubin,Total 0.8 MG/DL (0.2-1.0); Calcium 8.1 MG/DL (8.5-10.1); Osmolality,Calculated 272.1 MOS/KG (273-304); Risk Ratio 3.21; Thyroid Stimulating Hormone 2.18 uIU/ml (0.358-3.74); Total Protein 5.7 G/DL (6.4-8.3)
[2019-07-23] MEDS: LEVOTHYROXINE 125 MCG TABLET PO SCH (06:39)
[2019-07-23] MEDS: WARFARIN 5 MG TABLET PO SCH (06:39)
[2019-07-23] MEDS: DICYCLOMINE 20 MG TABLET PO PRN (06:39)
[2019-07-23] MEDS ORDERED: metroNIDAZOLE INJ 500 MG in PREMIX 1 EACH IV SCH (08:30)
[2019-07-23] MEDS ORDERED: PANTOPRAZOLE 40 MG TABLET PO SCH (09:00)
[2019-07-23] MEDS: PIPERACILLIN/TAZOBACTAM 3,375 MG in SODIUM CHLORIDE 0.9% 100 ML IV SCH ×2 (09:22→17:25)
[2019-07-23] MEDS: AMIODARONE 200 MG TABLET PO SCH (09:26)
[2019-07-23] MEDS: ASPIRIN EC 81 MG TABLET PO SCH (09:26)
[2019-07-23] MEDS: CHOLECALCIFEROL 5,000 UNIT TABLET PO SCH (09:27)
[2019-07-23] MEDS: MAGNESIUM OXIDE 400 MG TABLET PO SCH ×2 (09:27→21:06)
[2019-07-23] MEDS: lisinopriL 5 MG TABLET PO SCH ×2 (09:27→21:06)
[2019-07-23] MEDS: carvediloL 25 MG TABLET PO SCH ×2 (09:27→17:55)
[2019-07-23] MEDS: PANTOPRAZOLE 40 MG VIAL IV SCH (09:27)
[2019-07-23] MEDS: ONDANSETRON 4 MG/2 ML VIAL IV PRN ×2 (13:59→19:56)
[2019-07-24] MEDS: PIPERACILLIN/TAZOBACTAM 3,375 MG in SODIUM CHLORIDE 0.9% 100 ML IV SCH ×2 (01:06→08:30)
[2019-07-24] MEDS: ONDANSETRON 4 MG/2 ML VIAL IV PRN ×2 (01:08→09:38)
[2019-07-24] MEDS ORDERED: PROMETHAZINE INJ 12.5 MG in SODIUM CHLORIDE 0.9% 50 ML IV PRN (03:41)
[2019-07-24] MEDS: SODIUM CHLORIDE 0.9% 1,000 ML IV SCH ×4 (04:07→21:14)
[2019-07-24] MEDS: WARFARIN 5 MG TABLET PO SCH (06:03)
[2019-07-24] MEDS: LEVOTHYROXINE 125 MCG TABLET PO SCH (06:04)
[2019-07-24 06:11] LABS: Basophils % 0.1 % (0.0-0.8); Hematocrit 37.9 VOL% (35.7-47.0); Immature Granulocytes % 0.4 %; Immature Granulocytes Absolute 0.06 #; Lymphocytes # 1.3 10*3/uL (1.4-4.0); Lymphocytes % 8.2 % (21.3-54.2); Mean Corpuscular HGB Conc 31.7 GM/DL (32-36); Mean Platelet Volume 9.9 FL (9.6-12.0); Monocytes % 9.4 % (1.7-12.7); Neutrophils % 81.9 % (38.7-73.9); Platelet Count 211 T/CUMM (130-400); Red Blood Count 4.12 MC/CUMM (3.8-5.5); Red Cell Distribution Width 15.2 % (9.3-17.3); White Blood Count 15.8 T/CUMM (4-12)
[2019-07-24 06:39] LABS: Albumin 2.7 G/DL (3.4-5.0); Bilirubin,Total 1.1 MG/DL (0.2-1.0); Calcium 8.2 MG/DL (8.5-10.1); Osmolality,Calculated 269.4 MOS/KG (273-304); Total Protein 5.6 G/DL (6.4-8.3)
[2019-07-24] MEDS: carvediloL 25 MG TABLET PO SCH ×2 (08:48→17:29)
[2019-07-24] MEDS: CHOLECALCIFEROL 5,000 UNIT TABLET PO SCH (08:48)
[2019-07-24] MEDS: ASPIRIN EC 81 MG TABLET PO SCH (08:48)
[2019-07-24] MEDS: PANTOPRAZOLE 40 MG VIAL IV SCH (08:48)
[2019-07-24] MEDS: lisinopriL 5 MG TABLET PO SCH ×2 (08:48→21:17)
[2019-07-24] MEDS: MAGNESIUM OXIDE 400 MG TABLET PO SCH ×2 (08:48→21:16)
[2019-07-24] MEDS: AMIODARONE 200 MG TABLET PO SCH (08:48)
[2019-07-24 09:38] LABS: INR 2.6
[2019-07-24 09:39] LABS: PT Patient Result 28.4 SECS (9.6-12.2)
[2019-07-24] MEDS: CEFEPIME 1,000 MG in SODIUM CHLORIDE 0.9% 100 ML IV SCH ×3 (10:29→21:17)
[2019-07-24] MEDS ORDERED: metroNIDAZOLE INJ 500 MG in PREMIX 1 EACH IV SCH (10:30)
[2019-07-24] MEDS: metroNIDAZOLE INJ 500 MG in PREMIX 1 EACH IV SCH ×2 (11:14→17:29)
[2019-07-25] MEDS: metroNIDAZOLE INJ 500 MG in PREMIX 1 EACH IV SCH ×2 (02:41→09:30)
[2019-07-25] MEDS: SODIUM CHLORIDE 0.9% 1,000 ML IV SCH (04:10)
[2019-07-25] MEDS: LEVOTHYROXINE 125 MCG TABLET PO SCH (05:57)
[2019-07-25] MEDS: CEFEPIME 1,000 MG in SODIUM CHLORIDE 0.9% 100 ML IV SCH ×2 (05:58→10:37)
[2019-07-25] MEDS ORDERED: WARFARIN 2.5 MG TABLET PO SCH (06:00)
[2019-07-25 09:13] LABS: Basophils % 0.4 % (0.0-0.8); Eosinophils # 0.3 10*3/uL (0.0-0.87); Hematocrit 31.2 VOL% (35.7-47.0); Hemoglobin 9.8 GM/DL (12.0-16.0); Immature Granulocytes % 0.5 %; Immature Granulocytes Absolute 0.04 #; Lymphocytes # 1.4 10*3/uL (1.4-4.0); Mean Corpuscular HGB Conc 31.4 GM/DL (32-36); Mean Corpuscular Volume 92.9 FL (87-102); Mean Platelet Volume 9.4 FL (9.6-12.0); Monocytes % 10.2 % (1.7-12.7); Neutrophils % 65.9 % (38.7-73.9); Platelet Count 181 T/CUMM (130-400); Red Blood Count 3.36 MC/CUMM (3.8-5.5); Red Cell Distribution Width 15.3 % (9.3-17.3); White Blood Count 7.6 T/CUMM (4-12)
[2019-07-25] MEDS: ASPIRIN EC 81 MG TABLET PO SCH (09:20)
[2019-07-25] MEDS: MAGNESIUM OXIDE 400 MG TABLET PO SCH (09:20)
[2019-07-25] MEDS: CHOLECALCIFEROL 5,000 UNIT TABLET PO SCH (09:21)
[2019-07-25] MEDS: lisinopriL 5 MG TABLET PO SCH (09:21)
[2019-07-25] MEDS: AMIODARONE 200 MG TABLET PO SCH (09:21)
[2019-07-25] MEDS: carvediloL 25 MG TABLET PO SCH (09:21)
[2019-07-25] MEDS: PANTOPRAZOLE 40 MG VIAL IV SCH (09:21)
[2019-07-25 09:30] LABS: Calcium 7.6 MG/DL (8.5-10.1); Osmolality,Calculated 270.1 MOS/KG (273-304)
[2019-07-25 12:17] VITALS: BP 94/51
== END 2019-07-25 15:33 | disposition home or self-care (01) ==
LOC: N.EDINP 08:45 → N.ED 08:45 → SUATTDRO 11:52 → N.3E 13:17
PROVIDERS: ADMIT Family Medicine; ATTEND Internal Medicine